=== PATIENT | female | born 1940 | race Caucasian/White ===

== ENCOUNTER 2016-10-21 12:02 | Emergency (ER) | payer MEDICARE, OTHER ==
[~2016-10-21] VITALS: Ht 157.5 cm; Wt 65.0 kg
[~2016-10-21 12:02] MED LIST: ALLEGRA 180MG180 MG PO; ASPIRIN E.C. 8181 MG; CALCIUM600 MG PO; LABETALOL100 MG PO; NEXIUM 20MG20 MG PO; NO HOME MEDICATIONS; NORCO 325 MG-51 TAB PO; VITAMIN B121000 MC2 PO; VITAMIN D 400400 IU PO; ZITHROMAX 250M250 MG PO
[2016-10-21 12:09] VITALS: TEMP 98.6
[2016-10-21] MEDS ORDERED: NORVASC 5MG5 MG/TAB PO (12:30)
[2016-10-21] MEDS ORDERED: ASPIRIN 32325 MG/TAB PO (12:30)
[2016-10-21] MEDS ORDERED: PRESERVISION1 SGL PO (12:31)
[2016-10-21] MEDS ORDERED: MAGNESIUM100 MG PO (12:31)
[2016-10-21] MEDS ORDERED: EVISTA 60MG60 MG/TAB PO (12:32)
[2016-10-21 12:44] LABS: BASO # 0.1 (0.0-0.2); BASO % 0.7 % (0.0-2.0); EOS # 0.3 (0.0-0.7); EOS % 3.6 % (0-4.0); GRAN # 5.5 (1.4-6.5); HEMATOCRIT 34.2 % (37.0-47.0); HEMOGLOBIN 11.1 g/dl (12.5-16.0); LYMPH # 1.2 (1.2-3.4); LYMPH % 16.4 % (20.0-51.0); MEAN CELL VOLUME 95 fl (80.0-100.0); MEAN CORPUSCULAR HEMOGLOBIN 31 pg (27.0-31.0); MEAN CORPUSCULAR HGB CONC 33 g/dl (33.0-37.0); MEAN PLATELET VOLUME 9.1 fl (7.4-10.4); MONO # 0.5 (0.1-0.6); MONO % 6.2 % (1.7-9.3); PLATELET COUNT 299 K/mm3 (130-400); RED BLOOD COUNT 3.62 M/mm3 (4.10-5.30); WHITE BLOOD COUNT 7.6 K/mm3 (4.8-10.8)
[2016-10-21 12:54] LABS: ADJUSTED CALCIUM 9.3 mg/dL (8.4-10.2); ALANINE AMINOTRANSFERASE 32 U/L (9-52); ALBUMIN 3.8 gm/dL (3.5-5.0); ALKALINE PHOSPHATASE 69 U/L (50-136); ANION GAP 9 mmol/L (7-16); BILIRUBIN,TOTAL 0.5 mg/dL (0.0-1.0); BLOOD UREA NITROGEN 14 mg/dL (7-17); C-REACTIVE PROTEIN < 0.5 mg/dL (0.0-0.9); CALCIUM 9.1 mg/dL (8.4-10.2); CARBON DIOXIDE 29 mmol/L (22-30); CHLORIDE 101 mmol/L (98-107); CREATININE, serum 0.61 mg/dL (0.52-1.25); GLUCOSE 126 mg/dL (74-106); POTASSIUM 3.6 mmol/L (3.4-5.0); SODIUM 138 mmol/L (137-145); TOTAL PROTEIN 6.7 gm/dL (6.4-8.2)
[2016-10-21] MEDS ORDERED: TOPROL XL 50MG50 MG PO (13:57)
[2016-10-21] MEDS ORDERED: ANTIVERT 25MG25 MG PO (13:57)
[2016-10-21 14:06] VITALS: BP 158/88; PULSE 63
== END 2016-10-21 14:06 | disposition home or self-care (01) ==
LOC: COL.ER 12:02
PROVIDERS: Emergency Medicine
DX: I10 Essential (primary) hypertension (principal); R42 Dizziness and giddiness

== ENCOUNTER → 2016-12-21 | Outpatient (CLI) | payer MEDICARE, OTHER ==
[~2016-12-21] MED LIST changes: +ANTIVERT 25MG25 MG PO; +ASPIRIN 32325 MG/TAB PO; +CALCIUM 600/VIT1 CA1 PO; +DULCOLAX S10 MG/SUPP RC; +EVISTA 60MG60 MG/TAB PO; +MAGNESIUM100 MG PO; +MILK OF MA400 MG/52 PO; +NORCO 325 MG-7.1 TAB PO; +NORVASC 5MG5 MG/TAB PO; +PRESERVISION1 SGL PO; +ROXICODONE 55 MG/TAB PO; +SENOKOT S 50 MG1 TAB PO; +TOPROL XL 50MG50 MG PO; +TYLENOL 500MG500 MG PO; +ZANTAC 150MG T150 MG PO
== END ==
LOC: COL.RAD 13:00
DX: M25.551 Pain in right hip (principal)
CPT/HCPCS: J3301; Q9967

== ENCOUNTER 2017-01-23 14:12 | Emergency (ER) | payer MEDICARE, OTHER ==
[~2017-01-23] VITALS: Ht 160 cm; Wt 61.8 kg
[~2017-01-23 14:12] MED LIST changes: -CALCIUM 600/VIT1 CA1 PO; -DULCOLAX S10 MG/SUPP RC; -MILK OF MA400 MG/52 PO; -NORCO 325 MG-7.1 TAB PO; -ROXICODONE 55 MG/TAB PO; -SENOKOT S 50 MG1 TAB PO; -TYLENOL 500MG500 MG PO; -ZANTAC 150MG T150 MG PO
[2017-01-23 14:25] VITALS: BP 133/71; TEMP 98
[2017-01-23] MEDS ORDERED: CALCIUM 600/VIT1 CA1 PO (14:49)
[2017-01-23] MEDS ORDERED: NORCO 325 MG-51 TAB PO (15:31)
[2017-01-23 15:48] VITALS: PULSE 68
== END 2017-01-23 15:48 | disposition home or self-care (01) ==
LOC: COL.ER 14:12
DX: M16.11 Unilateral primary osteoarthritis, right hip (principal); I10 Essential (primary) hypertension

== ENCOUNTER → 2017-01-24 | Outpatient (CLI) | payer MEDICARE, OTHER ==
[~2017-01-24] MED LIST changes: +CALCIUM 600/VIT1 CA1 PO; +DULCOLAX S10 MG/SUPP RC; +MILK OF MA400 MG/52 PO; +NORCO 325 MG-7.1 TAB PO; +ROXICODONE 55 MG/TAB PO; +SENOKOT S 50 MG1 TAB PO; +TYLENOL 500MG500 MG PO; +ZANTAC 150MG T150 MG PO
[2017-01-24 15:44] LABS: MEAN CELL VOLUME 91 fl (80.0-100.0); MEAN CORPUSCULAR HGB CONC 32 g/dl (33.0-37.0); MEAN PLATELET VOLUME 9.8 fl (7.4-10.4); PLATELET COUNT 258 K/mm3 (130-400); REDCELL DISTRIBUTION WIDTH-CV 13.1 % (11.5-14.5); WHITE BLOOD COUNT 6.7 K/mm3 (4.8-10.8)
[2017-01-24 15:46] LABS: HEMATOCRIT 33.8 % (37.0-47.0); HEMOGLOBIN 10.9 g/dl (12.5-16.0); MEAN CORPUSCULAR HEMOGLOBIN 29 pg (27.0-31.0)
[2017-01-24 16:05] LABS: ERYTHROCYTE SEDIMENTATION RATE 14 mm/hr (0-30)
== END ==
LOC: COL.RAD 15:16
PROVIDERS: Orthopaedic Surgery
DX: R94.6 Abnormal results of thyroid function studies (principal); M25.551 Pain in right hip

== ENCOUNTER 2017-01-28 13:54 | Inpatient (IN) | payer MEDICARE, OTHER ==
[~2017-01-28] VITALS: Ht 156.2 cm; Wt 65.0 kg
[~2017-01-28 13:54] MED LIST changes: -DULCOLAX S10 MG/SUPP RC; -MILK OF MA400 MG/52 PO; -NORCO 325 MG-7.1 TAB PO; -ROXICODONE 55 MG/TAB PO; -SENOKOT S 50 MG1 TAB PO; -TYLENOL 500MG500 MG PO; -ZANTAC 150MG T150 MG PO
[2017-02-14] VITALS (13 sets, daily range): BP systolic 116–151; BP diastolic 55–80; PULSE 53–83; TEMP 97–98.1
[2017-02-15 03:33] VITALS: BP 127/63; PULSE 70; TEMP 98
[2017-02-15 06:00] LABS: HEMATOCRIT 31.5 % (37.0-47.0); HEMOGLOBIN 10.2 g/dl (12.5-16.0)
[2017-02-15 07:07] VITALS: BP 162/71; PULSE 79; TEMP 97.8
[2017-02-15 11:58] VITALS: BP 119/54; PULSE 73
[2017-02-15 15:58] VITALS: BP 123/50; PULSE 76; TEMP 98.7
[2017-02-15 19:56] VITALS: BP 139/67; PULSE 85; TEMP 99.5
[2017-02-16 02:57] VITALS: BP 144/85; PULSE 80; TEMP 99
[2017-02-16 06:01] LABS: HEMATOCRIT 29.2 % (37.0-47.0); HEMOGLOBIN 9.8 g/dl (12.5-16.0)
[2017-02-16 07:58] VITALS: BP 143/79; PULSE 93; TEMP 98
[2017-02-16 12:06] VITALS: BP 102/54; PULSE 78; TEMP 98.3
[2017-02-16 16:16] VITALS: BP 131/57; PULSE 78; TEMP 97.9
[2017-02-16 19:34] VITALS: BP 113/58; PULSE 80; TEMP 98.7
[2017-02-17 00:05] VITALS: BP 143/68; PULSE 78; TEMP 98.5
[2017-02-17 05:18] VITALS: BP 134/72; PULSE 87; TEMP 98.7
[2017-02-17 07:29] LABS: HEMATOCRIT 31.4 % (37.0-47.0); HEMOGLOBIN 10.1 g/dl (12.5-16.0)
[2017-02-17 09:06] VITALS: BP 98/69; PULSE 84; TEMP 98.7
[2017-02-17] MEDS ORDERED: NORCO 325 MG-7.1 TAB PO (10:02)
[2017-02-17] MEDS ORDERED: ROXICODONE 55 MG/TAB PO (10:03)
[2017-02-17] MEDS ORDERED: TYLENOL 500MG500 MG PO (10:27)
[2017-02-17] MEDS ORDERED: ZANTAC 150MG T150 MG PO (10:31)
[2017-02-17] MEDS ORDERED: SENOKOT S 50 MG1 TAB PO (10:46)
[2017-02-17] MEDS ORDERED: MILK OF MA400 MG/52 PO (10:47)
[2017-02-17] MEDS ORDERED: DULCOLAX S10 MG/SUPP RC (10:48)
[2017-02-17 10:57] VITALS: BP 98/69; PULSE 84; TEMP 98.7
[2017-02-17 12:23] VITALS: BP 113/46; PULSE 68; TEMP 97.7
== END 2017-02-17 13:30 | DRG 470 ==
LOC: JCC 02-14 05:26
PROVIDERS: Orthopaedic Surgery
PROC: 0SR90JA Replacement of Right Hip Joint with Synthetic Substitute, Uncemented, Open Approach (ICD-10-PCS; principal; 2017-02-14 07:30)
DX: M16.11 Unilateral primary osteoarthritis, right hip (principal)
CPT/HCPCS: A4315; A9284; C1713; C1776; J0690; J2250; J2370; J2704; J3010

== ENCOUNTER → 2017-02-07 | Outpatient (CLI) | payer MEDICARE, OTHER ==
[~2017-02-07] MED LIST changes: +DULCOLAX S10 MG/SUPP RC; +MILK OF MA400 MG/52 PO; +NORCO 325 MG-7.1 TAB PO; +ROXICODONE 55 MG/TAB PO; +SENOKOT S 50 MG1 TAB PO; +TYLENOL 500MG500 MG PO; +ZANTAC 150MG T150 MG PO
[2017-02-07 14:15] LABS: HIV 1/2 Antibodies Non-Reactive; HIV-1p24 Antigen Non-Reactive
== END ==
LOC: COL.LAB 11:55
PROVIDERS: Orthopaedic Surgery
DX: Z96.641 Presence of right artificial hip joint (principal)

== ENCOUNTER → 2017-11-28 | Outpatient (CLI) | payer MEDICARE, OTHER | LOC: MC.RAD 08:40 | DX: Z12.31 Encounter for screening mammogram for malignant neoplasm of breast (principal) ==

== ENCOUNTER 2019-04-24 12:49 | Emergency (ER) | payer MEDICARE, OTHER ==
[~2019-04-24] VITALS: Ht 157.5 cm; Wt 66.8 kg
[2019-04-24 12:53] VITALS: TEMP 99.3
[2019-04-24] MEDS ORDERED: REGLAN 5MG T5 MG/TAB PO (13:32)
[2019-04-24] MEDS ORDERED: PRILOSEC 20MG20 MG PO (13:33)
[2019-04-24 13:34] LABS: BASO % 0.4 % (0.0-2.0); EOS # 0.2 (0.0-0.7); EOS % 2.1 % (0-4.0); GRAN # 5.6 (1.4-6.5); GRAN % 59.5 % (42.2-75.2); HEMATOCRIT 38.7 % (37.0-47.0); HEMOGLOBIN 12.7 g/dl (12.5-16.0); INR 0.9 (0.8-3.0); LYMPH # 2.7 (1.2-3.4); LYMPH % 29.1 % (20.0-51.0); MEAN CELL VOLUME 95 fl (80.0-100.0); MEAN CORPUSCULAR HEMOGLOBIN 31 pg (27.0-31.0); MEAN CORPUSCULAR HGB CONC 33 g/dl (33.0-37.0); MEAN PLATELET VOLUME 9.2 fl (7.4-10.4); MONO # 0.8 (0.1-0.6); MONO % 8.7 % (1.7-9.3); PLATELET COUNT 259 K/mm3 (130-400); RED BLOOD COUNT 4.09 M/mm3 (4.10-5.30); REDCELL DISTRIBUTION WIDTH-CV 12.5 % (11.5-14.5)
[2019-04-24] MEDS ORDERED: DIOVAN/HCT 12.51 TAB PO (13:34)
[2019-04-24] MEDS ORDERED: LOTRISONE CREAM15 GM TP (13:35)
[2019-04-24] MEDS ORDERED: QUESTRAN4 GM/9 GM PO (13:36)
[2019-04-24 13:37] LABS: ALANINE AMINOTRANSFERASE 18 U/L (9-52); ALKALINE PHOSPHATASE 52 U/L (50-136); ANION GAP 13 mmol/L (7-16); AST,SGOT 28 U/L (15-37); BILIRUBIN,TOTAL 0.3 mg/dL (0.0-1.0); BLOOD UREA NITROGEN 17 mg/dL (7-17); CALCIUM 9.7 mg/dL (8.4-10.2); CARBON DIOXIDE 28 mmol/L (22-30); CHLORIDE 100 mmol/L (98-107); GLUCOSE 76 mg/dL (74-106); LIPASE 121 U/L (23-300); POTASSIUM 3.9 mmol/L (3.4-5.0); SODIUM 140 mmol/L (137-145); TOTAL PROTEIN 6.9 gm/dL (6.4-8.2)
[2019-04-24] MEDS ORDERED: ASMANEX HF100 MCG/Ac IH (13:37)
[2019-04-24] MEDS ORDERED: TYLENOL 325MG325 MG PO (13:39)
[2019-04-24 13:51] LABS: TROPONIN-I < 0.012 ng/mL (0.000-0.035)
[2019-04-24] MEDS ORDERED: TOPROL XL 25MG25 MG PO (15:19)
[2019-04-24 15:59] VITALS: BP 128/71; PULSE 77
== END 2019-04-24 15:59 | disposition home or self-care (01) ==
LOC: COL.ER 12:49
PROVIDERS: Emergency Medicine
DX: I49.3 Ventricular premature depolarization (principal); I10 Essential (primary) hypertension
CPT/HCPCS: J7030

== ENCOUNTER → 2019-04-28 | Outpatient (CLI) | payer MEDICARE, OTHER ==
[~2019-04-28] MED LIST changes: +ASMANEX HF100 MCG/Ac IH; +DIOVAN/HCT 12.51 TAB PO; +LOTRISONE CREAM15 GM TP; +PRILOSEC 20MG20 MG PO; +QUESTRAN4 GM/9 GM PO; +REGLAN 5MG T5 MG/TAB PO; +TOPROL XL 25MG25 MG PO; +TYLENOL 325MG325 MG PO
== END ==
LOC: COL.CARD 07:37
DX: R55 Syncope and collapse (principal); R00.2 Palpitations

== ENCOUNTER 2020-12-28 22:16 | Emergency (ER) | payer MEDICARE, OTHER ==
[~2020-12-28] VITALS: Ht 157.5 cm; Wt 58.6 kg
[2020-12-28 22:25] VITALS: TEMP 97.7
[2020-12-28 22:44] LABS: BASO % 0.5 % (0.0-2.0); EOS # 0.3 (0.0-0.7); EOS % 3.7 % (0-4.0); GRAN # 4.6 (1.4-6.5); GRAN % 59.9 % (42.2-75.2); HEMOGLOBIN 10.7 g/dl (12.5-16.0); LYMPH # 2.2 (1.2-3.4); LYMPH % 28.2 % (20.0-51.0); MEAN CELL VOLUME 95 fl (80.0-100.0); MEAN CORPUSCULAR HEMOGLOBIN 31 pg (27.0-31.0); MEAN CORPUSCULAR HGB CONC 32 g/dl (33.0-37.0); MEAN PLATELET VOLUME 8.5 fl (7.4-10.4); MONO # 0.6 (0.1-0.6); MONO % 7.4 % (1.7-9.3); PLATELET COUNT 333 K/mm3 (130-400); RED BLOOD COUNT 3.47 M/mm3 (4.10-5.30); REDCELL DISTRIBUTION WIDTH-CV 13.7 % (11.5-14.5)
[2020-12-28 22:46] LABS: HEMATOCRIT 33.1 % (37.0-47.0)
[2020-12-28 22:54] LABS: ALANINE AMINOTRANSFERASE 17 U/L (4-34); ALBUMIN 3.7 gm/dL (3.5-5.0); ALKALINE PHOSPHATASE 69 U/L (50-136); ANION GAP 9 mmol/L (7-16); AST,SGOT 28 U/L (15-37); BILIRUBIN,TOTAL < 0.1 mg/dL (0.0-1.0); BLOOD UREA NITROGEN 28 mg/dL (7-17); CALCIUM 9.1 mg/dL (8.4-10.2); CARBON DIOXIDE 26 mmol/L (22-30); CHLORIDE 95 mmol/L (98-107); CREATININE, serum 0.87 (0.52-1.25); GLUCOSE 103 mg/dL (74-106); POTASSIUM 3.7 mmol/L (3.4-5.0); SODIUM 130 mmol/L (137-145); TOTAL PROTEIN 6.6 gm/dL (6.4-8.2)
[2020-12-28 23:07] LABS: TROPONIN-I < 0.012 ng/mL (0.000-0.035)
[2020-12-29] MEDS ORDERED: PREDNISONE20 MG PO (00:47)
[2020-12-29] MEDS ORDERED: ZITHROMAX Z PA250 MG PO (00:47)
[2020-12-29 01:21] VITALS: BP 130/75; PULSE 81
== END 2020-12-29 01:15 | disposition home or self-care (01) ==
LOC: COL.ER 22:16
PROVIDERS: Emergency Medicine
DX: R06.02 Shortness of breath (principal); R05 Cough; I10 Essential (primary) hypertension; Z88.6 Allergy status to analgesic agent
CPT/HCPCS: J7512

== ENCOUNTER 2021-02-08 07:34 | Day surgery (SDC) | payer MEDICARE, OTHER ==
[~2021-02-08] VITALS: Ht 157.5 cm; Wt 75.1 kg
[2021-02-08] VITALS (10 sets, daily range): BP systolic 127–170; BP diastolic 67–103; PULSE 72–99; TEMP 97.6
[~2021-02-08 07:34] MED LIST changes: +PREDNISONE20 MG PO; +ZITHROMAX Z PA250 MG PO
[2021-02-08] MEDS ORDERED: TOPROL XL 25MG25 MG PO (08:00)
[2021-02-08 08:01] LABS: HEMATOCRIT 35.6 % (37.0-47.0); HEMOGLOBIN 11.4 g/dl (12.5-16.0); MEAN CELL VOLUME 99 fl (80.0-100.0); MEAN CORPUSCULAR HEMOGLOBIN 32 pg (27.0-31.0); MEAN CORPUSCULAR HGB CONC 32 g/dl (33.0-37.0); MEAN PLATELET VOLUME 8.7 fl (7.4-10.4); PLATELET COUNT 300 K/mm3 (130-400); REDCELL DISTRIBUTION WIDTH-CV 14.5 % (11.5-14.5)
[2021-02-08 08:08] LABS: PROTHROMBIN TIME 11.2 SECONDS (9.7-12.8)
[2021-02-08 08:10] LABS: PARTIAL THROMBOPLASTIN TIME 30.3 SECONDS (26.0-37.0)
[2021-02-08 08:11] LABS: CREATININE, serum 0.9 (0.52-1.25); POTASSIUM 4.1 mmol/L (3.4-5.0)
[2021-02-08] MEDS ORDERED: ANTIVERT 25MG25 MG PO (08:18)
--- NOTE | 2021-02-08 09:19 | NUR ---
SEE MERGE FOR ALL MEDICATION ADMINISTRATION TIMES, INTRA AND POST SEDATION ASSESSMENTS
--- NOTE | 2021-02-08 10:40 | NUR ---
Report from Kaylah RIVERA. Left upper chest drsg CD&I. Right Tband with 15 cc air, good pulses , and cap refill < 3 secs. Denies pain and needs. 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
[2021-02-08] MEDS ORDERED: ALDACTONE 25MG25 M1 PO (11:34)
[2021-02-08] MEDS ORDERED: CARTIA XT180 MG PO (11:35)
--- NOTE | 2021-02-08 13:39 | NUR ---
15 cc air released from right Tband and dressing applied to site. INT discontinued intact.
--- NOTE | 2021-02-08 14:00 | NUR ---
Discharge instructions given to pt and then daughter when transferring pt to car.
== END 2021-02-08 14:00 | disposition home or self-care (01) ==
LOC: COL.CAR 07:34
PROVIDERS: Internal Medicine Cardiovascular Disease
DX: I20.0 Unstable angina (principal); I27.20 Pulmonary hypertension, unspecified; I08.1 Rheumatic disorders of both mitral and tricuspid valves; Z79.899 Other long term (current) drug therapy; J98.11 Atelectasis; R00.2 Palpitations; R60.0 Localized edema
CPT/HCPCS: C1769; C1894; J1644; J3010; Q9967

== ENCOUNTER 2021-06-05 15:25 | Inpatient (IN) | payer MEDICARE ==
[~2021-06-05] VITALS: Ht 157.5 cm; Wt 53.0 kg
[~2021-06-05 15:25] MED LIST changes: +ALDACTONE 25MG25 M1 PO; +CARTIA XT180 MG PO
[2021-06-05 17:28] LABS: BASO % 0.4 % (0.0-2.0); EOS # 0.1 (0.0-0.7); EOS % 1.4 % (0-4.0); GRAN # 6.7 (1.4-6.5); GRAN % 73.7 % (42.2-75.2); HEMOGLOBIN 11.5 g/dl (12.5-16.0); LYMPH # 1.5 (1.2-3.4); MEAN CELL VOLUME 94 fl (80.0-100.0); MEAN CORPUSCULAR HEMOGLOBIN 30 pg (27.0-31.0); MEAN CORPUSCULAR HGB CONC 32 g/dl (33.0-37.0); MEAN PLATELET VOLUME 9.2 fl (7.4-10.4); MONO # 0.7 (0.1-0.6); MONO % 8.1 % (1.7-9.3); PLATELET COUNT 332 K/mm3 (130-400); RED BLOOD COUNT 3.84 M/mm3 (4.10-5.30); REDCELL DISTRIBUTION WIDTH-CV 12.6 % (11.5-14.5)
[2021-06-05 17:33] LABS: ALBUMIN 4.3 gm/dL (3.5-5.0); BILIRUBIN,TOTAL 0.9 mg/dL (0.0-1.0); CALCIUM 9.1 mg/dL (8.4-10.2); CREATININE, serum 0.71 (0.52-1.25); POTASSIUM 3.6 mmol/L (3.4-5.0); TOTAL PROTEIN 7.4 gm/dL (6.4-8.2)
[2021-06-05 17:44] LABS: TROPONIN-I 0.014 ng/mL (0.000-0.035)
[2021-06-05] MEDS ORDERED: ZOLOFT 25MG25 MG PO (20:27)
[2021-06-05] MEDS ORDERED: LASIX 20MG TABL20 MG PO (20:28)
[2021-06-05] MEDS ORDERED: ASPIRIN 81M81 MG/TA2 PO (20:29)
[2021-06-05] MEDS ORDERED: FOSAMAX 70MG TA70 MG PO (20:29)
[2021-06-05] MEDS ORDERED: REQUIP0.25 MG PO (20:31)
[2021-06-05] MEDS ORDERED: CARDIZEM CD 18180 MG PO (20:31)
--- NOTE | 2021-06-05 22:00 | NUR ---
To room 348 via stretcher. Pivoted well with stand by assist. Assessment complete. Noted to have elevated blood pressure using henrique. Taken manually and WNL. Denies pain. Oriented to room/policy. Instructed to call for assistance to bedside commode. Verbalizes understanding/denies questions/concerns. Call light in reach. Will monitor.
[2021-06-05 22:54] VITALS: BP 148/88; PULSE 105; TEMP 97.8
[2021-06-06] MEDS ORDERED: ALBUTEROL0.83 MG/ML IH (01:31)
[2021-06-06 02:55] VITALS: BP 148/88; PULSE 102; TEMP 98
--- NOTE | 2021-06-06 03:05 | NUR ---
Called with c/o pain-states she has a dull headache-rating pain 4/10 on pain scale. Motrin given per dr grande.
[2021-06-06 06:42] LABS: BASO % 0.4 % (0.0-2.0); EOS # 0.1 (0.0-0.7); EOS % 0.7 % (0-4.0); GRAN # 6.9 (1.4-6.5); GRAN % 80.9 % (42.2-75.2); HEMOGLOBIN 11.2 g/dl (12.5-16.0); LYMPH # 0.9 (1.2-3.4); LYMPH % 10.5 % (20.0-51.0); MEAN CELL VOLUME 95 fl (80.0-100.0); MEAN CORPUSCULAR HEMOGLOBIN 30 pg (27.0-31.0); MEAN CORPUSCULAR HGB CONC 32 g/dl (33.0-37.0); MEAN PLATELET VOLUME 9.1 fl (7.4-10.4); MONO # 0.6 (0.1-0.6); MONO % 7.1 % (1.7-9.3); PLATELET COUNT 308 K/mm3 (130-400); RED BLOOD COUNT 3.75 M/mm3 (4.10-5.30); REDCELL DISTRIBUTION WIDTH-CV 12.4 % (11.5-14.5)
[2021-06-06 06:49] LABS: HEMATOCRIT 35.5 % (37.0-47.0)
[2021-06-06 06:58] LABS: CALCIUM 8.6 mg/dL (8.4-10.2); CREATININE, serum 0.72 (0.52-1.25); POTASSIUM 3.4 mmol/L (3.4-5.0)
[2021-06-06 07:29] VITALS: BP 162/78; PULSE 96; TEMP 98
--- NOTE | 2021-06-06 08:00 | NUR ---
PATIENT IS A&O. NOTED ELEVATED B/P IN THE 160'S SYSTOLIC, SCHEDULED B/P MEDS GIVEN WITH AM MEDS. ALL OTHER VSS ON TELE. PATIENT REPORTS PAIN IN MANAGED. GAVE PRN MORTIN BEFORE THERAPY. BREAKFAST TRAY ORDERED. HEAD TO TOE ASSESSMENT COMPLETE, SEE CHARTING. LEFT FORARM IV TO INT. NO C/O N/V. PT/OT CONSULTED. NO OTHER NEEDS AT THIS TIME. CALL LIGHT IN REACH. BED ALARM ON.
--- NOTE | 2021-06-06 10:13 | NUR ---
Initial visit; Patient thanked [employer] for looking in on her, visiting and offering prayer and God's blessings.
[2021-06-06 12:09] VITALS: BP 124/67; PULSE 88; TEMP 98.7
--- NOTE | 2021-06-06 12:40 | NUR ---
PATIENT BACK FROM SURGERY, LEFT STENT PLACED, NO STONE FOUND. PATIENT RESTING UP IN BED WITH NO COMPLAINTS AND IS VERY DROWSY. VSS. HEAD TO TOE ASSESSMENT WNL. CALL LIGHT IN REACH. PATIENT TO DISCHARGE LATER TODAY.
--- NOTE | 2021-06-06 13:50 | NUR ---
SW met with the patient to discuss discharge plan. The patient lives alone outside of [place]. She states that since she had a fall, her family has been rotating turns staying with her. She reports needing assistance with ADLs lately and has a rollator and nocturnal oxygen from [employer]. The patient's PCP is Dr. Janice Arevalo and she receives her medications from [facility]. She reports no difficulties obtaining her meds. The patient does not have a DPOA-HC in EMR, but she states that she does have one completed and the the document is at home. She states that she designated her son, Alexander. The patient is and states that she has three children: Alexander, Cora (ph#[phone]), and Mary (ph#[phone]). The patient reports that her and her family are interested in post-acute rehab upon discharge. The patient states that she would prefer [facility] and she requested that SW contact her daughters for another preference. The patient's daughter, Mary, then arrived to the hospital. SW followed up with the patient and Mary. The patient and Mary report that they would now prefer 1) [facility] 2) [facility]. SW consulted [facility] Director, Simin. NURYS contacted and faxed a referral to Beverly at [facility]. Awaiting screens. *Discharge plan: post-acute rehab*
[2021-06-06 15:59] VITALS: BP 138/73; PULSE 103; TEMP 97.8
--- NOTE | 2021-06-06 16:46 | NUR ---
Beverly, at [facility], reports that they are able to accept the patient for a skilled stay.
[2021-06-06 19:18] VITALS: BP 142/82; PULSE 88; TEMP 98
--- NOTE | 2021-06-06 20:00 | NUR ---
Bedside shift report received, assumed care for caustic cresylate shift superintendent. Assessment complete. A&Ox3-very drowsy. Denies pain/nausea. Short of breath at rest. O2@2L/NC. Left lung bellamy diminished/right clear. Bruising to hip/side. Plan of care discussed for this shift to include meds/calling for questions/concerns. Verbalizes understanding. Call light in reach. Will monitor.
[2021-06-06 23:17] VITALS: BP 137/69; PULSE 85; TEMP 97.7
--- NOTE | 2021-06-06 23:31 | NUR ---
Called with c/o headache-rating pain 4/10 on pain scale-motrin given per dr grande.
[2021-06-07 04:17] VITALS: BP 143/74; PULSE 80; TEMP 98
[2021-06-07 06:49] LABS: BASO % 0.4 % (0.0-2.0); EOS # 0.1 (0.0-0.7); EOS % 1.8 % (0-4.0); GRAN # 5.1 (1.4-6.5); GRAN % 74.7 % (42.2-75.2); HEMOGLOBIN 10.4 g/dl (12.5-16.0); LYMPH # 1.1 (1.2-3.4); LYMPH % 15.3 % (20.0-51.0); MEAN CELL VOLUME 94 fl (80.0-100.0); MEAN CORPUSCULAR HEMOGLOBIN 30 pg (27.0-31.0); MEAN CORPUSCULAR HGB CONC 32 g/dl (33.0-37.0); MEAN PLATELET VOLUME 8.9 fl (7.4-10.4); MONO # 0.5 (0.1-0.6); MONO % 7.7 % (1.7-9.3); PLATELET COUNT 288 K/mm3 (130-400); RED BLOOD COUNT 3.49 M/mm3 (4.10-5.30); REDCELL DISTRIBUTION WIDTH-CV 12.5 % (11.5-14.5)
[2021-06-07 06:58] LABS: HEMATOCRIT 32.9 % (37.0-47.0)
[2021-06-07 07:06] VITALS: BP 167/88; PULSE 91; TEMP 98
[2021-06-07 07:10] LABS: CALCIUM 8.7 mg/dL (8.4-10.2); CREATININE, serum 0.71 (0.52-1.25); POTASSIUM 3.4 mmol/L (3.4-5.0)
--- NOTE | 2021-06-07 09:51 | NUR ---
Follow-up visit; Patient thanked for checking on her again today. Isi appears to be doing well. will continue to look in on her.
[2021-06-07 11:11] VITALS: BP 149/87; PULSE 102; TEMP 98.3
--- NOTE | 2021-06-07 11:20 | NUR ---
The PA notified SW that the patient should be able to d/c tomorrow, 06/08. NURYS notified [facility] Director, Simin. NURYS notified and faxed updates to Beverly at [facility].
--- NOTE | 2021-06-07 11:39 | NUR ---
Patient alert and oriented, answers questions appropriately. See assessment. FWB. No c/o at this time.
[2021-06-07 15:13] VITALS: BP 124/66; PULSE 89; TEMP 98.2
[2021-06-07 19:14] VITALS: BP 106/56; PULSE 79; TEMP 98.5
--- NOTE | 2021-06-07 20:00 | NUR ---
PATIENT IS SITTING UP IN BED. ALERT AND ORIENTED X4. PATIENT STOOD AT BEDSIDE. PATIENT HAS 2L O2 THROUGH NC. PATIENT HAS L FORARM IV. PATIENT IS AWAITING PLACEMENT. PATIENT DENIES PAIN AT THIS TIME. NO FURTHER NEEDS AT THIS TIME. CALL LIGHT WITHIN REACH. HEAD TO TOE ASSESSMENT COMPLETE.
[2021-06-07 23:10] VITALS: BP 120/65; PULSE 92; TEMP 98.2
[2021-06-08 03:03] VITALS: BP 128/74; PULSE 84; TEMP 98.1
--- NOTE | 2021-06-08 06:16 | NUR ---
PATIENT DID WELL THROUGHOUT NIGHT. SLEPT MOST OF NIGHT. POSSIBLE DISCHARGE TODAY. NO FURTHER NEEDS AT THIS TIME. WILL REPORT TO [facility].
[2021-06-08 06:54] LABS: BASO % 0.4 % (0.0-2.0); EOS # 0.2 (0.0-0.7); EOS % 2.7 % (0-4.0); GRAN # 6.7 (1.4-6.5); GRAN % 75.1 % (42.2-75.2); LYMPH # 1.2 (1.2-3.4); LYMPH % 13.3 % (20.0-51.0); MEAN CELL VOLUME 97 fl (80.0-100.0); MEAN CORPUSCULAR HGB CONC 31 g/dl (33.0-37.0); MEAN PLATELET VOLUME 9.2 fl (7.4-10.4); MONO # 0.7 (0.1-0.6); MONO % 8.2 % (1.7-9.3); PLATELET COUNT 315 K/mm3 (130-400); RED BLOOD COUNT 3.26 M/mm3 (4.10-5.30); REDCELL DISTRIBUTION WIDTH-CV 12.6 % (11.5-14.5)
[2021-06-08 06:58] LABS: HEMOGLOBIN 9.8 g/dl (12.5-16.0); MEAN CORPUSCULAR HEMOGLOBIN 30 pg (27.0-31.0)
[2021-06-08 06:59] LABS: HEMATOCRIT 31.7 % (37.0-47.0)
[2021-06-08 07:14] LABS: CREATININE, serum 0.78 (0.52-1.25); MAGNESIUM 2.1 mg/dL (1.6-2.3)
[2021-06-08 07:19] VITALS: BP 126/75; PULSE 91; TEMP 98.1
--- NOTE | 2021-06-08 09:48 | NUR ---
Follow-up visit; Cara arroyo walking with Physical Therapist. Customer Quality Specialist offered "Good morning" and encouragement.
--- NOTE | 2021-06-08 10:14 | NUR ---
Patient alert and oriented, answers questions appropriately. See assessment. Respers even and unlabored. Lungs CTA. Pulses palpable to BLE, no c/o numbness or tingling. FWW with walker. No other c/o at this time.
[2021-06-08] MEDS ORDERED: MUCINEX DM 30 M1 TE1 PO ×2 (10:20)
[2021-06-08] MEDS ORDERED: BLUE-EMU LIDOC1 EACH TP ×3 (10:21→13:33)
[2021-06-08] MEDS ORDERED: TESSALON PERLE200 MG PO ×2 (10:21)
[2021-06-08] MEDS ORDERED: ULTRAM 50MG TAB50 MG PO ×3 (10:25→13:32)
--- NOTE | 2021-06-08 10:37 | NUR ---
Simin, [facility] Director, notified NURYS that she met with the patient. The hospitalist recommended SNF and the patient and her family are wanting to pursue [facility] now. NURYS notified and faxed updates to Beverly at [facility]. Beverly reports that they are able to accept the patient. The patient is to discharge today, 06/08, to [facility] for a skilled stay. Transportation was scheduled at 1215, via [facility]. NURYS informed the patient, her RN, and her daughter (Mary) of the time. They were all agreeable to the time. No additional needs at this time.
[2021-06-08 11:53] VITALS: BP 143/80; PULSE 104; TEMP 98.1
[2021-06-08 12:18] VITALS: BP 143/80; PULSE 104; TEMP 98.1
--- NOTE | 2021-06-08 12:38 | NUR ---
Patient transferred to [facility] via wheelchair with transportation staff at 1228. Paperwork sent. Report called to Heather.
== END 2021-06-08 12:28 | DRG 189 ==
LOC: COL.ER 15:25 → SURG 19:59
PROVIDERS: Family Medicine; Personal Emergency Response Attendant; Student in an Organized Health Care Education/Training Program; ADMIT Student in an Organized Health Care Education/Training Program
DX: J96.01 Acute respiratory failure with hypoxia (principal); S32.592A Other specified fracture of left pubis, initial encounter for closed fracture; S22.42XA Multiple fractures of ribs, left side, initial encounter for closed fracture; J90 Pleural effusion, not elsewhere classified; J98.11 Atelectasis; E87.3 Alkalosis; I10 Essential (primary) hypertension; M19.90 Unspecified osteoarthritis, unspecified site; I27.20 Pulmonary hypertension, unspecified; Z96.641 Presence of right artificial hip joint; Z79.82 Long term (current) use of aspirin; J47.9 Bronchiectasis, uncomplicated; G25.81 Restless legs syndrome; K21.9 Gastro-esophageal reflux disease without esophagitis; F32.9 Major depressive disorder, single episode, unspecified; R42 Dizziness and giddiness
CPT/HCPCS: 99232-AI; 99233-AI; 99239; A9284; J1650; J1940; Q9967